=== PATIENT | male | born 1960 | race Caucasian/White ===

== ENCOUNTER 2018-04-09 08:28 | Day surgery (SDC) | payer MEDICARE, OTHER ==
[2018-04-09 09:28] VITALS: O2SAT 100
[2018-04-09] MEDS ORDERED: Propofol 10 mg/ml Inj (20 ML) ONE ×3 (10:39→11:12)
[2018-04-09 12:03] VITALS: TEMP 98
[2018-04-09 12:57] VITALS: BP 126/90; PULSE 67; RESP 13
== END 2018-04-09 12:54 | disposition home or self-care (01) ==
LOC: C.ENDO 08:28
PROVIDERS: ATTEND Internal Medicine Gastroenterology
DX: R13.10 Dysphagia, unspecified (principal); Z12.11 Encounter for screening for malignant neoplasm of colon; K22.70 Barrett's esophagus without dysplasia; B96.81 Helicobacter pylori [H. pylori] as the cause of diseases classified elsewhere; K44.9 Diaphragmatic hernia without obstruction or gangrene; K29.70 Gastritis, unspecified, without bleeding; K29.80 Duodenitis without bleeding
CPT/HCPCS: 43239; 88305; J2001; J2704